=== PATIENT | male | born 1985 | race Caucasian/White ===

== ENCOUNTER 2020-06-24 10:26 | Emergency (ER) | payer MEDICAID, SELFPAY ==
[2020-06-24 10:29] VITALS: BP 121/80; PULSE 73; RESP 21; O2SAT 93; BMI 40.8
--- NOTE | 2020-06-24 10:32 | W.ED.DIZZY ---
HPI - Dizziness General: Chief Complaint: Dizziness Stated Complaint: DIZZY, LETHARGIC Time Seen by Provider: 06/24/20 10:32 Source: patient and EMS Mode of arrival: EMS Limitations: no limitations History of Present Illness: HPI Narrative: Patient is a 35-year-old male who presents to ED today from [facility] for reports of dizziness, sweating, and drowsiness. Patient tells me yesterday when he went to sleep he felt fine . He states he woke up this morning and was extremely dizzy. Patient tells me he was diagnosed with vertigo approximately 2 years ago but has not had much issues with this since. He states his dizziness will subside if he lies down but is worse with positional changes. He states within the last week he was recently diagnosed with diabetes and placed on Metformin. Patient states he does not take any other medications. Denies alcohol or drug use. Patient states that he feels weak all over. He is not having any chest pain or shortness of breath. He denies any numbness or tingling to his extremities. He has not noticed any facial drooping or slurred speech. He states he is not having pain anywhere. He's had a little diarrhea since starting the Metformin. Of note, patient was seen in our ED approximately two years ago for similar symptoms-HPI at that visit stated: pt states he had 1.5 beers last night and this am he woke up soaked in sweat and started vomiting, he states he got extremely dizzy and everything was spinning, he is very sleepy now . MD elicited complaint: dizziness Onset (ago): hour(s) Timing: awoke with symptoms History of similar symptoms: Yes Exacerbating factors: movement/ambulation and change in body position Relieving factors: remaining still Associated symptoms: Denies change in hearing, chest pain, chills, ear discharge, headache(s), malaise, nausea, nasal congestion, palpitations, syncope, tinnitus or vomiting Associated neuro symptoms: Deny numbness in extremities Review of Systems Const: Denies: fever(s), chills, body aches, fatigue or malaise Eyes: Denies: change in vision, blurry vision, photophobia, floaters or seeing flashes ENMT: Denies: odynophagia, ear or mastoid pain, ear discharge, change in hearing, tinnitus, nasal discharge, nasal congestion, post nasal drip or sinus pain Card: Denies: chest pain, palpitations, irregular heart rhythm, lightheadedness, syncope or dyspnea on exertion Resp: Denies: dyspnea, productive cough or pain on inspiration GI: Denies: abdominal pain, nausea, vomiting, heartburn or diarrhea : Denies: difficulty urinating or dysuria Musc: Denies: neck pain, back pain or joint pain Skin/Breast: Denies: rash Neuro: Reports: dizziness and vertigo; Denies: headache(s), numbness in extremities, weakness in extremities, sensory changes, frequent falls or Slurred speech present Physical Exam Const: COMMON NORMALS: patient oriented x3, no limitations, healthy appearing and alert GENERAL APPEARANCE: cooperative NUTRITIONAL APPEARANCE: obese ORIENTATION/CONSCIOUSNESS: Yes awake, Yes oriented to person, Yes oriented to place and Yes oriented to time OTHER: appeared drowsy during beginning of assessment but became more alert and was able to answer all questions appropriately and interact with conversation HENMT: COMMON NORMALS: normocephalic, atraumatic, hearing grossly normal bilaterally, external ears normal, EAC's normal, TM's normal bilaterally, Normal external nose present and Normal nasal mucous membranes and turbinates present HEAD & SCALP: normal to inspection, normocephalic and atraumatic FACE & SINUS: normal facial exam and sinuses nontender NOSE: Normal external nose present and Normal nasal mucous membranes and turbinates present EXTERNAL EAR: Yes external ears normal EXTERNAL AUDITORY CANAL: EAC's normal TYMPANIC MEMBRANE: TM's normal bilaterally Eye: COMMON NORMALS: Equal, round and reactive pupils present, EOMs intact bilaterally and conjunctivae normal GENERAL EYE: appearance normal, both eyes and all related structures and normal light reflex CONJUNCTIVA: Yes conjunctivae normal PUPIL: Yes Equal, round and reactive pupils present DIRECT OPHTHALMOSCOPY: Yes normal light reflex OTHER: horizontal and vertical nystagmus noted; lyle-hallpike manuever does not cause nystagmus; normal response of head impulse testing Neck/C-Spine: COMMON NORMALS: full ROM, no lymphadenopathy and no meningeal signs Resp: COMMON NORMALS: normal respiratory effort and clear to auscultation bilaterally AUSCULTATION: clear to auscultation bilaterally Cardio: COMMON NORMALS: regular rate and regular rhythm RATE: regular rate RHYTHM: regular rhythm GI: COMMON NORMALS: Normal to inspection, nondistended, normoactive bowel sounds present, Soft to palpation, non-tender, No hepatosplenomegaly present and no masses PALPATION: Yes Soft to palpation and Yes No hepatosplenomegaly present Extremity: COMMON NORMALS: normal to inspection GENERAL: Yes normal exam except as noted Neuro: YADI COMA SCALE: document GCS findings Yadi coma scale eye opening: Spontaneous [place] coma scale verbal response: Orientated [place] coma scale motor response: Obey commands [place] coma scale total score: 15 COMMON NORMALS: patient oriented x3 SENSORIUM/ORIENTATION: Yes alert, Yes oriented to person, Yes oriented to place and Yes oriented to time MENINGEAL SIGNS: Yes no meningeal signs SPEECH: speech normal MOTOR EXAM: 5/5 motor strength present throughout Skin: COMMON NORMALS: no rashes or lesions noted GENERAL SKIN EXAM: no rashes or lesions noted Course Vital Signs: Vital signs: Vital Signs Temperature 98.8 F 06/24/20 10:39 Pulse Rate 65 06/24/20 10:46 Respiratory Rate 21 H 06/24/20 10:46 Blood Pressure 112/71 06/24/20 10:46 Pulse Oximetry 93 06/24/20 10:46 MDM - Dizziness MDM Narrative: Medical decision making narrative: Patient has had what sounds like almost identical symptoms previously. During one of my re-examinations patient tells me that over the past 6 weeks he has had three separate episodes of dizziness lasting approximately 48 hours and then will subside for two weeks. He did not previously indulge this information. He has no symptoms concerning for central vertigo. He feels better after PO Meclizine here. Recommend followup with PCP. He was given instruction papers regarding the Kamron Manuever and how to perform this at home to help with the vertigo. Lab Data: Labs: Lab Results 06/24/20 06/24/20 06/24/20 Range/Units 10:36 10:43 10:43 WBC 9.0 (4.0-10.0) 10^3/ uL RBC 5.73 H (4.1-5.3) 10^6/u L Hgb 15.5 (11.7-16.6) g/dL Hct 49.5 (42.0-52.0) % MCV 86.4 (80-94) fL MCH 27.1 L (28.0-34.0) pg MCHC 31.3 (30.0-36.0) g/dL RDW 13.3 (12.1-15.1) % Plt Count 221 (130-400) 10^3/c mm MPV 9.9 (7.4-10.4) fL Neut % (Auto) 71.3 % Lymph % (Auto) 19.6 % Gentry % (Auto) 7.0 % Eos % (Auto) 1.3 % Baso % (Auto) 0.2 % Neut # (Auto) 6.42 (1.8-7.7) 10^3/u L Lymph # (Auto) 1.8 (0.8-4.8) 10^3/u L Gentry # (Auto) 0.6 (0.2-0.9) 10^3/u L Eos # (Auto) 0.1 (0.0-0.8) 10^3/u L Baso # (Auto) 0.0 (0.0-0.1) 10^3/u L Nucleated RBC % (a uto) 0 % Nucleated RBCs # 0.0 /100WBC Specimen Type Sample Site ABG pH (7.35-7.45) ABG pCO2 (35-45) mmHg ABG pO2 (80.0-100.0) mmH g ABG HCO3 (22-26) mmol/L ABG O2 Saturation ABG Base Excess (-2.0-2.0) mmol/ L Sagar Test A-a O2 Gradient (5-10) mmHg Hematocrit (42-52) % Hgb O2 Saturation (95-100) % Carboxyhemoglobin (0.4-20.1) %THgb Methemoglobin (0.4-1.5) % Total Hemoglobin (14-18) g/dL Ionized Calcium (1.1-1.4) mmol/L O2 Delivery Device FiO2 % Swimming Pool Plasterer Helper ID Sodium 137 (136-145) mmol/L Potassium 4.4 (3.5-5.1) mmol/L Chloride 105 (98-107) mmol/L Carbon Dioxide 24 (22-29) mmol/L Anion Gap 12.4 (5-19) BUN 9 (6-20) mg/dL Creatinine 0.7 (0.7-1.2) mg/dL GFR Calculation 126.9 (90-130) mL/min Glucose 96 (65-115) mg/dL POC Glucose 96 (70-110) mg/dL Calculated Osmolal ity 283 L (285-295) mOsm/k g Lactic Acid (0.5-2.2) mmol/L Calcium 8.8 (8.5-10.5) mg/dL Total Bilirubin 0.3 (0.15-1.2) mg/dL AST 12 (0-40) U/L ALT 18 (0-41) U/L Alkaline Phosphata se 87 (40-130) IU/L Troponin T Gen 5 n g/L (0-15) ng/L Total Protein 6.6 (6.6-8.7) g/dL Albumin 3.9 (3.5-5.2) g/dL Globulin 2.7 (1.3-4.6) g/dL Urine Color (Yellow) Urine Appearance (CLEAR) Urine pH (5-7) Ur Specific Gravit y (1.005-1.030) Urine Protein (Negative) Urine Glucose (UA) (Normal) Urine Ketones (Negative) Urine Blood (Negative) Urine Nitrate (Negative) Urine Bilirubin (Negative) Urine Urobilinogen (Negative) mg/dL Ur Leukocyte Jada ase (Negative) Urine RBC (0-2) /hpf Urine WBC (0-5) /hpf Ur Squamous Epith Cells (0-5) /hpf Amorphous Sediment Urine Bacteria (NONE) /hpf Urine Mucus /hpf Urine Opiates Scre en (Negative) ng/mL Ur Barbiturates Sc reen (Negative) ng/mL Ur Phencyclidine S crn (Negative) ng/mL Ur Amphetamines Sc reen (Negative) ng/mL U Benzodiazepines Scrn (Negative) ng/mL Urine Cocaine Scre en (Negative) ng/mL U Marijuana (THC) Screen (Negative) ng/mL Ethyl Alcohol (0-10) mg/dL Serum Ketones (Negative) 06/24/20 06/24/20 06/24/20 Range/Units 10:43 10:43 10:43 WBC (4.0-10.0) 10^3/ uL RBC (4.1-5.3) 10^6/u L Hgb (11.7-16.6) g/dL Hct (42.0-52.0) % MCV (80-94) fL MCH (28.0-34.0) pg MCHC (30.0-36.0) g/dL RDW (12.1-15.1) % Plt Count (130-400) 10^3/c mm MPV (7.4-10.4) fL Neut % (Auto) % Lymph % (Auto) % Gentry % (Auto) % Eos % (Auto) % Baso % (Auto) % Neut # (Auto) (1.8-7.7) 10^3/u L Lymph # (Auto) (0.8-4.8) 10^3/u L Gentry # (Auto) (0.2-0.9) 10^3/u L Eos # (Auto) (0.0-0.8) 10^3/u L Baso # (Auto) (0.0-0.1) 10^3/u L Nucleated RBC % (a uto) % Nucleated RBCs # /100WBC Specimen Type Sample Site ABG pH (7.35-7.45) ABG pCO2 (35-45) mmHg ABG pO2 (80.0-100.0) mmH g ABG HCO3 (22-26) mmol/L ABG O2 Saturation ABG Base Excess (-2.0-2.0) mmol/ L Sagar Test A-a O2 Gradient (5-10) mmHg Hematocrit (42-52) % Hgb O2 Saturation (95-100) % Carboxyhemoglobin (0.4-20.1) %THgb Methemoglobin (0.4-1.5) % Total Hemoglobin (14-18) g/dL Ionized Calcium (1.1-1.4) mmol/L O2 Delivery Device FiO2 % Swimming Pool Plasterer Helper ID Sodium (136-145) mmol/L Potassium (3.5-5.1) mmol/L Chloride (98-107) mmol/L Carbon Dioxide (22-29) mmol/L Anion Gap (5-19) BUN (6-20) mg/dL Creatinine (0.7-1.2) mg/dL GFR Calculation (90-130) mL/min Glucose (65-115) mg/dL POC Glucose (70-110) mg/dL Calculated Osmolal ity (285-295) mOsm/k g Lactic Acid 0.8 (0.5-2.2) mmol/L Calcium (8.5-10.5) mg/dL Total Bilirubin (0.15-1.2) mg/dL AST (0-40) U/L ALT (0-41) U/L Alkaline Phosphata se (40-130) IU/L Troponin T Gen 5 n g/L 6 (0-15) ng/L Total Protein (6.6-8.7) g/dL Albumin (3.5-5.2) g/dL Globulin (1.3-4.6) g/dL Urine Color (Yellow) Urine Appearance (CLEAR) Urine pH (5-7) Ur Specific Gravit y (1.005-1.030) Urine Protein (Negative) Urine Glucose (UA) (Normal) Urine Ketones (Negative) Urine Blood (Negative) Urine Nitrate (Negative) Urine Bilirubin (Negative) Urine Urobilinogen (Negative) mg/dL Ur Leukocyte Jada ase (Negative) Urine RBC (0-2) /hpf Urine WBC (0-5) /hpf Ur Squamous Epith Cells (0-5) /hpf Amorphous Sediment Urine Bacteria (NONE) /hpf Urine Mucus /hpf Urine Opiates Scre en (Negative) ng/mL Ur Barbiturates Sc reen (Negative) ng/mL Ur Phencyclidine S crn (Negative) ng/mL Ur Amphetamines Sc reen (Negative) ng/mL U Benzodiazepines Scrn (Negative) ng/mL Urine Cocaine Scre en (Negative) ng/mL U Marijuana (THC) Screen (Negative) ng/mL Ethyl Alcohol (0-10) mg/dL Serum Ketones Negative (Negative) 06/24/20 06/24/20 06/24/20 Range/Units 10:43 10:50 11:21 WBC (4.0-10.0) 10^3/ uL RBC (4.1-5.3) 10^6/u L Hgb (11.7-16.6) g/dL Hct (42.0-52.0) % MCV (80-94) fL MCH (28.0-34.0) pg MCHC (30.0-36.0) g/dL RDW (12.1-15.1) % Plt Count (130-400) 10^3/c mm MPV (7.4-10.4) fL Neut % (Auto) % Lymph % (Auto) % Gentry % (Auto) % Eos % (Auto) % Baso % (Auto) % Neut # (Auto) (1.8-7.7) 10^3/u L Lymph # (Auto) (0.8-4.8) 10^3/u L Gentry # (Auto) (0.2-0.9) 10^3/u L Eos # (Auto) (0.0-0.8) 10^3/u L Baso # (Auto) (0.0-0.1) 10^3/u L Nucleated RBC % (a uto) % Nucleated RBCs # /100WBC Specimen Type Arterial Sample Site Radial, left ABG pH 7.42 (7.35-7.45) ABG pCO2 36.3 (35-45) mmHg ABG pO2 67.7 L (80.0-100.0) mmH g ABG HCO3 23.4 (22-26) mmol/L ABG O2 Saturation 95.9 ABG Base Excess -0.7 (-2.0-2.0) mmol/ L Sagar Test Pos A-a O2 Gradient 4.7 L (5-10) mmHg Hematocrit 49.1 (42-52) % Hgb O2 Saturation 91.4 L (95-100) % Carboxyhemoglobin 4.5 (0.4-20.1) %THgb Methemoglobin 0.2 L (0.4-1.5) % Total Hemoglobin 16.0 (14-18) g/dL Ionized Calcium 1.2 (1.1-1.4) mmol/L O2 Delivery Device Room air FiO2 21.0 % Swimming Pool Plasterer Helper ID Cak Sodium 140.0 (136-145) mmol/L Potassium 4.5 (3.5-5.1) mmol/L Chloride (98-107) mmol/L Carbon Dioxide (22-29) mmol/L Anion Gap (5-19) BUN (6-20) mg/dL Creatinine (0.7-1.2) mg/dL GFR Calculation (90-130) mL/min Glucose 100.0 (65-115) mg/dL POC Glucose (70-110) mg/dL Calculated Osmolal ity (285-295) mOsm/k g Lactic Acid (0.5-2.2) mmol/L Calcium (8.5-10.5) mg/dL Total Bilirubin (0.15-1.2) mg/dL AST (0-40) U/L ALT (0-41) U/L Alkaline Phosphata se (40-130) IU/L Troponin T Gen 5 n g/L (0-15) ng/L Total Protein (6.6-8.7) g/dL Albumin (3.5-5.2) g/dL Globulin (1.3-4.6) g/dL Urine Color Yellow (Yellow) Urine Appearance Clear (CLEAR) Urine pH 6.5 (5-7) Ur Specific Gravit y 1.015 (1.005-1.030) Urine Protein Trace (Negative) Urine Glucose (UA) Norm (Normal) Urine Ketones Negative (Negative) Urine Blood 3+ H (Negative) Urine Nitrate Negative (Negative) Urine Bilirubin Neg (Negative) Urine Urobilinogen 4 H (Negative) mg/dL Ur Leukocyte Jada ase Negative (Negative) Urine RBC 15-25 H (0-2) /hpf Urine WBC None (0-5) /hpf Ur Squamous Epith Cells 0-4 H (0-5) /hpf Amorphous Sediment Not Reportable Urine Bacteria 1+ H (NONE) /hpf Urine Mucus Trace /hpf Urine Opiates Scre en (Negative) ng/mL Ur Barbiturates Sc reen (Negative) ng/mL Ur Phencyclidine S crn (Negative) ng/mL Ur Amphetamines Sc reen (Negative) ng/mL U Benzodiazepines Scrn (Negative) ng/mL Urine Cocaine Scre en (Negative) ng/mL U Marijuana (THC) Screen (Negative) ng/mL Ethyl Alcohol < 10 (0-10) mg/dL Serum Ketones (Negative) 06/24/20 Range/Units 11:21 WBC (4.0-10.0) 10^3/ uL RBC (4.1-5.3) 10^6/u L Hgb (11.7-16.6) g/dL Hct (42.0-52.0) % MCV (80-94) fL MCH (28.0-34.0) pg MCHC (30.0-36.0) g/dL RDW (12.1-15.1) % Plt Count (130-400) 10^3/c mm MPV (7.4-10.4) fL Neut % (Auto) % Lymph % (Auto) % Gentry % (Auto) % Eos % (Auto) % Baso % (Auto) % Neut # (Auto) (1.8-7.7) 10^3/u L Lymph # (Auto) (0.8-4.8) 10^3/u L Gentry # (Auto) (0.2-0.9) 10^3/u L Eos # (Auto) (0.0-0.8) 10^3/u L Baso # (Auto) (0.0-0.1) 10^3/u L Nucleated RBC % (a uto) % Nucleated RBCs # /100WBC Specimen Type Sample Site ABG pH (7.35-7.45) ABG pCO2 (35-45) mmHg ABG pO2 (80.0-100.0) mmH g ABG HCO3 (22-26) mmol/L ABG O2 Saturation ABG Base Excess (-2.0-2.0) mmol/ L Sagar Test A-a O2 Gradient (5-10) mmHg Hematocrit (42-52) % Hgb O2 Saturation (95-100) % Carboxyhemoglobin (0.4-20.1) %THgb Methemoglobin (0.4-1.5) % Total Hemoglobin (14-18) g/dL Ionized Calcium (1.1-1.4) mmol/L O2 Delivery Device FiO2 % Swimming Pool Plasterer Helper ID Sodium (136-145) mmol/L Potassium (3.5-5.1) mmol/L Chloride (98-107) mmol/L Carbon Dioxide (22-29) mmol/L Anion Gap (5-19) BUN (6-20) mg/dL Creatinine (0.7-1.2) mg/dL GFR Calculation (90-130) mL/min Glucose (65-115) mg/dL POC Glucose (70-110) mg/dL Calculated Osmolal ity (285-295) mOsm/k g Lactic Acid (0.5-2.2) mmol/L Calcium (8.5-10.5) mg/dL Total Bilirubin (0.15-1.2) mg/dL AST (0-40) U/L ALT (0-41) U/L Alkaline Phosphata se (40-130) IU/L Troponin T Gen 5 n g/L (0-15) ng/L Total Protein (6.6-8.7) g/dL Albumin (3.5-5.2) g/dL Globulin (1.3-4.6) g/dL Urine Color (Yellow) Urine Appearance (CLEAR) Urine pH (5-7) Ur Specific Gravit y (1.005-1.030) Urine Protein (Negative) Urine Glucose (UA) (Normal) Urine Ketones (Negative) Urine Blood (Negative) Urine Nitrate (Negative) Urine Bilirubin (Negative) Urine Urobilinogen (Negative) mg/dL Ur Leukocyte Jada ase (Negative) Urine RBC (0-2) /hpf Urine WBC (0-5) /hpf Ur Squamous Epith Cells (0-5) /hpf Amorphous Sediment Urine Bacteria (NONE) /hpf Urine Mucus /hpf Urine Opiates Scre en Negative (Negative) ng/mL Ur Barbiturates Sc reen Negative (Negative) ng/mL Ur Phencyclidine S crn Negative (Negative) ng/mL Ur Amphetamines Sc reen Negative (Negative) ng/mL U Benzodiazepines Scrn Negative (Negative) ng/mL Urine Cocaine Scre en Negative (Negative) ng/mL U Marijuana (THC) Screen Negative (Negative) ng/mL Ethyl Alcohol (0-10) mg/dL Serum Ketones (Negative) Imaging Data^: CXR: Radiologist's impression: [address] [address] XRay Report Signed Patient: Javon Carlos Unit #: [id number] : 1985 Age/Sex: 35 / M ADM Date: 06/24/20 Loc: ER Room/Bed: Attending Dr: Ordering Provider/Ordering MD: Meeta Nicholson Date of Service: 06/24/20 Procedure(s): XR chest 1V portable [id number] Accession Number(s): [id number] Report Number: [id number] WS: [id number] XR chest 1V portable [id number] REASON FOR EXAM: dizzy/drowsiness FINDINGS: The heart and mediastinum are within normal limits. Calcified granulomatous changes in both hemithoraces. No active pulmonary parenchymal or pleural disease identified. Bony thorax is intact. XR/XR chest 1V portable [id number] IMPRESSION: No acute chest abnormality. Dictated By: Douglas Smith Jr, MD Signed By: Douglas Smith Jr, MD Signed Date/Time: 06/24/20 1059 DD/ 105 CT Head: Radiologist's impression: [address] [place] [address] CT Scan Report Signed Patient: Javon Carlos Unit #: [id number] : 1985 Age/Sex: 35 / M ADM Date: 06/24/20 Loc: ER Room/Bed: Attending Dr: Ordering Provider/Ordering MD: Meeta Nicholson Date of Service: 06/24/20 Procedure(s): CT head wo con* [id number] Accession Number(s): [id number] Report Number: [id number] WS: [id number] CT HEAD TECHNIQUE: Noncontrast CT of the head obtained from the skullbase to the vertex. CLINICAL INFORMATION: dizziness/drowsiness COMPARISON: CT June 19, 2018 and MRI August 2018 DLP: 952.[address] scans at [facility] use at least one of these dose optimization techniques: automated exposure control; mA and/or kV adjustment per patient size (includes targeted exams where dose is matched to clinical indication); or iterative reconstruction. FINDINGS: No evidence of intracranial hemorrhage or mass effect. Ventricular system and basal cisterns are patent. No extra-axial fluid collections. No evidence of mass or mass effect. Normal miller-white differentiation. Paranasal sinuses and mastoid air cells are well aerated. .Normal visualized soft tissues. CT/CT head wo con* [id number] IMPRESSION: 1. No evidence of intracranial hemorrhage or mass effect. 2. Normal miller-white differentiation. 3. No acute intracranial findings. Dictated By: Willem Watt MD Signed By: Willem Watt MD Signed Date/Time: 06/24/20 1238 DD/ 1233 Discharge Plan Discharge Patient Disposition: Home Clinical Impression: Benign paroxysmal positional vertigo Qualifiers: Laterality: unspecified laterality Qualified Code(s): H81.10 - Benign paroxysmal vertigo, unspecified ear Condition: Stable Prescriptions: New meclizine 25 mg tablet 25 mg PO QID PRN (Reason: dizziness) Qty: 20 RF: 0 No Action aspirin 325 mg Tablet 325 mg PO PRN RF: 0 ergocalciferol (vitamin D2) 1,250 mcg (50,000 unit) capsule See Rx Instructions .ROUTE .COMPLEX RF: 0 Tylenol PM Extra Strength 25-500 mg Tablet 2 - 3 tab PO BEDTIME PRN (Reason: Sleep) RF: 0 metformin 500 mg tablet extended release 24 hr See Rx Instructions .ROUTE .COMPLEX RF: 0 Discharge Orders: Discharge ED (Routine); Ordered 06/24/20 Ordered By: Meeta Nicholson Referrals: Tsering Tran, [employer]NIFE [employer]UTTER [employer]ACHINE[facility] [Primary Care Provider] - Patient Instructions: Benign Paroxysmal Positional Vertigo (ED) Coding Level of Care Code ED Stack Yield Engineer for Vern Fwhailee Exam Comprehensive
--- NOTE | 2020-06-24 10:33 | XR_ITS ---
WS: [id number] XR chest 1V portable [id number] REASON FOR EXAM: dizzy/drowsiness FINDINGS: The heart and mediastinum are within normal limits. Calcified granulomatous changes in both hemithoraces. No active pulmonary parenchymal or pleural dise ase identified. Bony thorax is intact. XR/XR chest 1V portable [id number] IMPRESSION: No acute chest abnormality.
--- NOTE | 2020-06-24 10:33 | ECG_ITS ---
[facility] Test Date: 2020-06-24 Pat Name: Javon Carlos Department: Room: Gender: Male Associate Curator: : 1985 Requested By: Meeta Nicholson Order Number: [id number] Cadena MD: Christina Mendoza M.D. Measurements Intervals [place] Rate: 64 P: 17 MN: 185 QRS: -1 QRSD: 96 T: 12 QT: 379 QTc: 393 Interpretive Statements SINUS RHYTHM INDETERMINATE AXIS LOW QRS VOLTAGE IN PRECORDIAL LEADS [QRS DEFLECTION < 1.0 mV IN CHEST LEADS] PATTERN CONSISTENT WITH PULMONARY DISEASE Compared to ECG 07/09/2018 10:11:26 Indeterminate axis now present Low QRS voltage now present Myocardial infarct finding no longer present Electronically Signed On 06-25-2020 7:47:38 CDT by Christina Mendoza M.D. [id number] f
[2020-06-24 10:39] VITALS: BP 121/80; PULSE 67; RESP 26; TEMP 37.1; O2SAT 94
[2020-06-24 10:40] LABS: Glucose Point of Care 96 mg/dL (70-110)
[2020-06-24 10:46] VITALS: BP 112/71; PULSE 65; RESP 21; O2SAT 93
[2020-06-24 10:53] LABS: Basophils % 0.2 %; Eosinophils # 0.1 10^3/uL (0.0-0.8); Eosinophils % 1.3 %; Hematocrit 49.5 % (42.0-52.0); Hemoglobin 15.5 g/dL (11.7-16.6); Lymphocytes # 1.8 10^3/uL (0.8-4.8); Lymphocytes % 19.6 %; Mean Corpuscular HGB Conc 31.3 g/dL (30.0-36.0); Mean Corpuscular Hemoglobin 27.1 pg (28.0-34.0); Mean Corpuscular Volume 86.4 fL (80-94); Mean Platelet Volume 9.9 fL (7.4-10.4); Monocytes # 0.6 10^3/uL (0.2-0.9); Neutrophils # 6.42 10^3/uL (1.8-7.7); Neutrophils % 71.3 %; Nucleated Red Blood Cells % 0 %; Platelet Count 221 10^3/cmm (130-400); Red Blood Count 5.73 10^6/uL (4.1-5.3); Red Cell Distribution Width 13.3 % (12.1-15.1)
[2020-06-24] MEDS: sodium chloride 0.9% 1,000 ML 999 ML IV (10:54)
[2020-06-24 11:02] LABS: ABG PCO2 36.3 mmHg (35-45); ABG PH Result 7.42 (7.35-7.45); Alveolar-Arterial Oxygen Gradi 4.7 mmHg (5-10); Arterial Blood Gas Hematocrit 49.1 % (42-52); Base Excess ABG -0.7 mmol/L (-2.0-2.0); Blood Gas Allen Test Pos; Blood Gas Operator Identificat CAK; Blood Gas Sample Site Radial, left; Blood Gas Sample Type Arterial; Carboxyhemoglobin 4.5 %THgb (0.4-20.1); HCO3 ABG 23.4 mmol/L (22-26); HGB O2 Sat 91.4 % (95-100); Ionized Calcium Level - ABG 1.2 mmol/L (1.1-1.4); Methemoglobin 0.2 % (0.4-1.5); Oxygen Device ROOM AIR; Oxygen Saturation ABG 95.9; PO2 ABG 67.7 mmHg (80.0-100.0); Potassium Level - ABG 4.5 mmol/L (3.5-5.0)
[2020-06-24 11:03] LABS: Ketone (Acetest) Serum Negative (Negative)
[2020-06-24 11:11] LABS: Lactic Sepsis W/Reflex 0.8 mmol/L (0.5-2.2)
[2020-06-24 11:12] LABS: Alanine Aminotransferase 18 U/L (0-41); Albumin Level 3.9 g/dL (3.5-5.2); Alkaline Phosphatase 87 IU/L (40-130); Anion Gap 12.4 (5-19); Aspartate Amino Transferase 12 U/L (0-40); Blood Urea Nitrogen 9 mg/dL (6-20); Calcium 8.8 mg/dL (8.5-10.5); Carbon Dioxide 24 mmol/L (22-29); Chloride 105 mmol/L (98-107); Globulin 2.7 g/dL (1.3-4.6); Glomerular Filtration Rate 126.9 mL/min (90-130); Glucose 96 mg/dL (65-115); Osmolality Calculated 283 mOsm/kg (285-295); Potassium 4.4 mmol/L (3.5-5.1); Sodium 137 mmol/L (136-145); Total Bilirubin 0.3 mg/dL (0.15-1.2); Total Protein 6.6 g/dL (6.6-8.7)
--- NOTE | 2020-06-24 11:27 | CT_ITS ---
WS: [id number] CT HEAD TECHNIQUE: Noncontrast CT of the head obtained from the skullbase to the vertex. CLINICAL INFORMATION: dizziness/drowsiness COMPARISON: CT June 19, 2018 and MRI August 2018 DLP: 952.[address] scans at [facility] use at least one of these dose optimization techniques: automat ed exposure control; mA and/or kV adjustment per patient size (includes targeted exams where dose is matched to clinical indication); or iterative reconstruction. FINDINGS: No evidence of intracranial hemorrhage or mass effect. Ventricular system and basal cisterns are dobson nt. No extra-axial fluid collections. No evidence of mass or mass effect. Normal miller-white different iation. Paranasal sinuses and mastoid air cells are well aerated. .Normal visualized soft tissues. CT/CT head wo con* [id number] IMPRESSION: 1. No evidence of intracranial hemorrhage or mass effect. 2. Normal miller-white differentiation. 3. No acute intracranial findings.
[2020-06-24 11:35] LABS: Add Urine Microscopic? YES; Bilirubin Urine Neg (Negative); Blood Urine 3+ (Negative); Glucose Urine UA Norm (Normal); Ketones Urine Negative (Negative); Leukocyte Esterase Urine Negative (Negative); Nitrate Urine Negative (Negative); Protein Urine Trace (Negative); Specific Gravity, Urine 1.015 (1.005-1.030); Urine Appearance Clear (CLEAR); Urine Color Yellow (Yellow); Urobilinogen Urine 4 mg/dL (Negative); pH Urine 6.5 (5-7)
[2020-06-24] MEDS: meclizine 25 mg tablet 50 MG PO (11:40)
[2020-06-24 11:42] LABS: RBC Urine 15-25 /hpf (0-2)
[2020-06-24 11:43] LABS: Add Urine Culture? Yes; Bacteria Urine 1+ /hpf; Mucus Urine TRACE /hpf; Squamous Epithelial Cell Urine 0-4 /hpf (0-5)
[2020-06-24 11:44] LABS: Amphetamines Screen Urine Negative (Negative); Barbiturates Screen Urine Negative (Negative); Benzodiazepines Screen Urine Negative (Negative); Cocaine Screen Urine Negative (Negative); Opiate Screen Urine Negative (Negative); PCP Screen Urine Negative (Negative); THC Screen Urine Negative (Negative)
[2020-06-24 11:44] LABS: Troponin T (5th) Once 6 ng/L (0-15)
[2020-06-24 12:01] LABS: Alcohol Level < 10 mg/dL (0-10)
[2020-06-24 13:02] VITALS: BP 116/73; PULSE 71; RESP 16; O2SAT 96
== END 2020-06-24 13:03 | disposition home or self-care (01) ==
PROVIDERS: Emergency Provider Physician Assistant; PCP Nurse Practitioner Family
DX: H81.10 Benign paroxysmal vertigo, unspecified ear (principal); Z79.84 Long term (current) use of oral hypoglycemic drugs; Z79.82 Long term (current) use of aspirin
CPT/HCPCS: 36416; 36600; 70450; 71045; 80051; 80053; 80306; 80307; 81001; 82009; 82330; 82805; 82962; 83605; 84484; 85025; 87086; 93005; 96360; 99284; J7030; J8597

== ENCOUNTER 2021-04-01 13:31 | Outpatient (CLI) | payer MEDICAID, SELFPAY ==
[2021-04-01 14:27] LABS: Basophils # 0.1 10^3/uL (0.0-0.1); Basophils % 0.4 %; Eosinophils # 0.1 10^3/uL (0.0-0.8); Eosinophils % 0.9 %; Hematocrit 48.9 % (42.0-52.0); Hemoglobin 15.7 g/dL (11.7-16.6); Lymphocytes # 2.9 10^3/uL (0.8-4.8); Lymphocytes % 24.6 %; Mean Corpuscular HGB Conc 32.1 g/dL (30.0-36.0); Mean Corpuscular Hemoglobin 26.6 pg (28.0-34.0); Mean Corpuscular Volume 82.9 fl (80-94); Mean Platelet Volume 10.5 fL (7.4-10.4); Monocytes # 0.6 10^3/uL (0.2-0.9); Monocytes % 5.3 %; Neutrophils # 8.04 10^3/uL (1.8-7.7); Neutrophils % 68.2 %; Nucleated Red Blood Cells % 0 %; Platelet Count 225 10^3/cmm (130-400); Red Cell Distribution Width 13.4 % (12.1-15.1); White Blood Count 11.8 10^3/uL (4.0-10.0)
[2021-04-01 14:57] LABS: Slide Review Slide Review Perform
--- NOTE | 2021-04-01 16:03 | ONC CON_ITS ---
Dr. Trinh New Patient Note Patient: Javon Carlos Unit #: [id number]: [id number] Dicatated By: Frida Trinh M.D.Date of Visit: Apr 01, 2021 Onc MED New Patient/Consult Referring Physician: David Heller History of Present Illness: Mr. Javon Carlos, is a 35-year-old gentleman with a history of smoking since age 15, as per patient he smoked about pack or pack and half a day,., As per patient during routine follow-up with his PMD, lab work-up done on December 19, 2020 showed white blood count 12.8, hemoglobin 15.9 hematocrit 48.2 platelets 235,000 with left shift. Patient denies any history of fever at that time. Patient denies any sore throat, denies any sinus problem, denies any chronic cough, denies any chronic inflammation, patient has history of fall causing injury to lower back for which he is being evaluated by PMD. Patient denies any steroid intake, denies any dysuria but history of off and on hematuria since 2001, as per patient he underwent right inguinal hernia repair in 2000 and after few months during routine checkup he was found to have hematuria not gross but only on urinalysis. As per patient he had extensive work-up done including cystoscopy, scans in the past but all the work-up remained inconclusive. Also has history of diabetes, on Metformin. Denies any family history of blood disorder or leukemia., Denies any alcohol use. Patient said he used to weigh close to 300 pounds but has lost about 20 pounds in the past few months. He has been evaluated for sleep apnea. Past Medical History: Mr. Carlos's medical history consists of gastroesophageal reflux disease. Past Surgical History: Mr. Carlos's surgical/procedural history consists of hernia repair. Medications: metFORMIN HCl ER 1 Tablet (of 500 mg) Tablet SR 24 HR Oral daily, Phentermine HCl 1 Tablet (of 37.5 mg) Oral daily PRN Allergies: No Known Allergies. Social History: Mr. Carlos is single. He is a daily smoker who has smoked 0.5 packs/day for 20 years. Family History: There is no documented family history. Review Of Symptoms: Review of Systems is not available for this patient. Vital Signs: Performed on Apr 01, 2021 15:23: 0, 7, 40.99 (HIGH), 2.37 sq.m, 69 in, 95 % (LOW), 82 /min, 16 /min, 119/78 mm(hg), 98.5 F, and 277.6 lbs (HIGH). Performance Status: 0 - Fully active, able to carry on all predisease activities without restrictions. (ECOG) Physical Examination: ENMT - No mouth sores, no thrush, no jaundice, Respiratory - Poor air entry otherwise clear, Cardiovascular - Regular rate and rhythm of heart, Abdomen - Soft, bowel sounds present, Extremities - No visible edema. Lab/Imaging: Most recent lab results are not available for this patient. Impression: Isolated mild leukocytosis per lab work-up done on December 19, 2020 which shows white blood count 12.8, hemoglobin 15.9 hematocrit 48.2 platelets 235 with neutrophil 71.2% lymphocytes 19.4% History of diabetes, on Metformin Chronic smoking since age 15, still active As per patient history of microscopic hematuria since 2001 Obesity Plan: Discussed with patient regarding his labs white blood count 11.8 hemoglobin 15.7 hematocrit 48.9 platelets 225,000 neutrophils 68.2% lymphocyte 24.6% Clinically, patient doing well with no signs symptom suggestive of infection, his follow-up CBC done today showed mild improvement in his isolated mild leukocytosis, with a normal hemoglobin and platelet count, etiology of mild isolated leukocytosis could be multifactorial including but not limited to chronic smoking or smoking-related chronic bronchitis. Or sleep apnea or chronic inflammation or myeloproliferative disorder but less likely. At this point, patient was advised to quit smoking was offered any assistance he may need and then repeat his CBC in a month, if his CBC improves, then no further work-up on the other hand if patient has persistent leukocytosis, may consider whole blood flow cytometry. Signed By: Frida Trinh M.D. <<Signature on File>>
== END 2021-04-01 13:32 | disposition home or self-care (01) ==
PROVIDERS: PCP Nurse Practitioner Family; Visit Provider Internal Medicine Hematology & Oncology
DX: D72.829 Elevated white blood cell count, unspecified (principal); Z86.39 Personal history of other endocrine, nutritional and metabolic disease; F17.210 Nicotine dependence, cigarettes, uncomplicated; R31.9 Hematuria, unspecified; E66.9 Obesity, unspecified
CPT/HCPCS: 36415; 85025; 99204